=== PATIENT | female | born 1950 | race Caucasian/White ===

== ENCOUNTER 2019-11-30 17:06 | Outpatient (CLI) | payer OTHER | END 2019-11-30 17:07 | disposition home or self-care (01) | LOC: COV 17:06 | PROVIDERS: ATTEND Family Medicine | DX: R05 Cough (principal); M79.10 Myalgia, unspecified site; R53.83 Other fatigue; J02.9 Acute pharyngitis, unspecified; R19.7 Diarrhea, unspecified | CPT/HCPCS: 81599 ==

== ENCOUNTER 2020-08-13 12:04 | Outpatient (CLI) | payer OTHER, MEDICARE | END 2020-08-13 12:05 | disposition home or self-care (01) | LOC: COV 12:04 | PROVIDERS: ATTEND Family Medicine | DX: R53.83 Other fatigue (principal); Z20.828 Contact with and (suspected) exposure to other viral communicable diseases; M79.10 Myalgia, unspecified site; R68.83 Chills (without fever); J02.9 Acute pharyngitis, unspecified; R19.7 Diarrhea, unspecified; R09.81 Nasal congestion ==

== ENCOUNTER 2021-03-23 13:03 | Outpatient (CLI) | payer OTHER, MEDICARE ==
--- NOTE | 2021-03-23 13:28 | XRAY Report ---
PROCEDURE: Finger(s) LT INDICATIONS: CRUSHING INJURY TO LEFT RING FINGER TECHNIQUE: AP hand, 2 views of the fourth finger(s) acquired. COMPARISON: None FINDINGS: Bones: No fractures or dislocations. No suspicious bony lesions. Focal degenerative change is seen involving the first carpometacarpal joint, with milder degenerative changes seen elsewhere. Soft tissues: No suspicious soft tissue calcifications. IMPRESSION: No displaced fracture can be seen by plain film. Reviewed by: Bashir Chavez MD on 03/23/2021 12:26 PM JUN Approved by: Bashir Chavez MD on 03/23/2021 12:26 PM JUN Station ID: [id number]
== END 2021-03-23 23:59 | disposition home or self-care (01) ==
LOC: DI.S 13:03
PROVIDERS: ATTEND Physician Assistant Medical
DX: S67.195A Crushing injury of left ring finger, initial encounter (principal)

== ENCOUNTER 2021-07-18 07:07 | Outpatient (CLI) | payer MEDICARE, OTHER ==
[2021-07-18 15:20] LABS: BASOPHILS # (AUTO) 0.1 10^3/uL (0.0-0.1); BASOPHILS % (AUTO) 0.9 %; EOSINOPHILS # (AUTO) 0.1 10^3/uL (0.0-0.7); EOSINOPHILS % (AUTO) 2.1 %; HCT - HEMATOCRIT 40.5 % (37.0-47.0); HGB - HEMOGLOBIN 13.2 g/dL (12.0-16.0); LYMPHOCYTES # (AUTO) 0.6 10^3/uL (1.5-3.5); LYMPHOCYTES % (AUTO) 10.7 %; MEAN CORPUSCULAR HGB CONC 32.6 g/dL (32.0-36.0); MEAN CORPUSCULAR VOLUME 98.3 fL (81.0-99.0); MONOCYTES # (AUTO) 0.5 10^3/uL (0.0-1.0); MONOCYTES % (AUTO) 9.3 %; NEUTROPHILS # (AUTO) 4.4 10^3/uL (1.5-6.6); NEUTROPHILS % (AUTO) 76.8 %; PLT - PLATELET COUNT 322 10^3/uL (130-450); RED BLOOD COUNT 4.12 10^6/uL (4.20-5.40); RED CELL DISTRIBUTION WIDTH 13.5 % (12.0-15.0); WHITE BLOOD COUNT 5.7 x10^3/uL (4.8-10.8)
[2021-07-18 15:41] LABS: ALBUMIN 4.2 g/dL (3.2-5.5); ALKALINE PHOSPHATASE 57 IU/L (42-121); ALT ALANINE AMINOTRANSFERASE 17 IU/L (10-60); AST ASPARTATE AMINOTRANSFERASE 24 IU/L (10-42); BILIRUBIN,TOTAL 0.8 mg/dL (0.2-1.0); BUN - BLOOD UREA NITROGEN 16 mg/dL (6-20); CALCIUM 9.4 mg/dL (8.5-10.3); CARBON DIOXIDE - CO2 26 mmol/L (21-32); CHLORIDE 99 mmol/L (101-111); CREATININE 0.8 mg/dL (0.4-1.0); CRP HIGH SENSITIVITY 8.4 mg/L; GAMMA GLUTAMYL TRANSPEPTIDASE 11 IU/L (8-38); GFR - MDRD 71 (>89); GLUCOSE 99 mg/dL (70-100); POTASSIUM 4.2 mmol/L (3.5-5.0); SODIUM 132 mmol/L (135-145); TOTAL PROTEIN 6.9 g/dL (6.7-8.2)
[2021-07-18 15:42] LABS: ALBUMIN/GLOBULIN RATIO 1.6 (1.0-2.2); CHOL/HDL RATIO 2.7 (<4.4); CHOLESTEROL 213 mg/dL; HDL CHOLESTEROL 80 mg/dL; LDL CHOLESTEROL,CALCULATED 111 mg/dL; LDL/HDL RATIO 1.4 (<4.4); TRIGLYCERIDES 111 mg/dL; VLDL CHOLESTEROL 22 mg/dL
[2021-07-18 15:51] LABS: T4 (THYROXINE) 8.74 ug/dL (6.09-12.23)
[2021-07-18 15:54] LABS: THYROID STIMULATING HORMONE 1.92 uIU/mL (0.34-5.60)
[2021-07-18 17:28] LABS: FERRITIN 21.8 ng/mL (11.0-306.8)
[2021-07-19 12:51] LABS: HOMOCYSTEINE 9.4 umol/L (<10.4)
[2021-07-21 16:31] LABS: THYROID PEROXIDASE ANTIBODIES 20 IU/mL (<9)
[2021-07-21 23:01] LABS: 17-HYDROXYPREGNENOLONE <6 ng/dL
[2021-07-23 19:01] LABS: GLUCOSE-6-PHOSPHATE DEHYDROG 14.6 U/g Hgb (7.0-20.5)
[2021-07-25 05:36] LABS: HDL LARGE 9128 nmol/L (>6729); LDL MEDIUM 307 nmol/L (<215); LDL PARTICLE NUMBER 1630 nmol/L (<1138); LDL PATTERN A Pattern (A); LDL PEAK SIZE 224.8 Angstrom (>222.9); LDL SMALL 240 nmol/L (<142)
== END 2021-07-18 07:08 | disposition home or self-care (01) ==
LOC: LAB.S 07:07
PROVIDERS: ATTEND Registered Nurse
DX: I89.0 Lymphedema, not elsewhere classified (principal); Z13.228 Encounter for screening for other metabolic disorders; Z13.220 Encounter for screening for lipoid disorders; Z13.29 Encounter for screening for other suspected endocrine disorder; Z13.0 Encounter for screening for diseases of the blood and blood-forming organs and certain disorders involving the immune mechanism
CPT/HCPCS: 36415; 80053; 80061; 81599; 82105; 82306; 82607; 82728; 82955; 82977; 83090; 83519; 83525; 83704; 83721; 84143; 84270; 84402; 84403; 84436; 84443; 84480; 85025; 86141; 86376; 86800

== ENCOUNTER 2021-09-03 12:02 | Day surgery (SDC) | payer MEDICARE, OTHER ==
[2021-09-03] MEDS ORDERED: LACTATED RINGERS 1,000 ML IV ONE ×2 (12:09→15:55)
--- NOTE | 2021-09-03 14:15 | ANESTHESIA ---
Pre-Anesthesia VS, & Labs - Diagnosis polyps - Procedure colonoscopy Vital Signs: Temp Pulse Resp BP Pulse Ox 36.7 C 58 L 16 120/78 100 09/03/21 12:26 09/03/21 12:26 09/03/21 12:26 09/03/21 12:26 09/03/21 12:26 Height: 5 ft 8 in Weight (kg): 59.7 kg Body Mass Index: 20.0 BMI Classification: Healthy weight - NPO >8 hours - Is Patient ?: No Home Medications and Allergies Home Medications: Ambulatory Orders Ascorbic Acid [Vitamin C] 1 tab ORAL DAILY 09/02/21 Calcium Carbonate [Calcium] 600 mg PO DAILY 09/02/21 Magnesium 1 tab ORAL DAILY 09/02/21 Vitamin A 1 tab ORAL DAILY 09/02/21 Vitamin B Complex 1 tab ORAL DAILY 09/02/21 Ascorbic Acid [Vitamin C] 1 tab ORAL DAILY 09/02/21 Calcium Carbonate [Calcium] 600 mg PO DAILY 09/02/21 Magnesium 1 tab ORAL DAILY 09/02/21 Vitamin A 1 tab ORAL DAILY 09/02/21 Vitamin B Complex 1 tab ORAL DAILY 09/02/21 Allergies/Adverse Reactions: Allergies Allergy/AdvReac Type Severity Reaction Status Date / Time No Known Drug Allergies Allergy Verified 09/02/21 12:41 Anes History & Medical History - Anesthetic History Anesthesia Complications: reports: No previous complications - Medical History Cardiovascular: reports: Other Pulmonary: reports: None Gastrointestinal: reports: None Urinary: reports: None Musculoskeletal: reports: None Endocrine/Autoimmune: reports: None Skin: reports: None History of Cancer?: No - Surgical History Gynecologic: reports: Breast implants Exam General: Alert, Oriented x3, Cooperative Dental: WNL Mouth Opening: Greater than 4 Fingerbreadths Neck Mobility: Normal Mallampati classification: I Thyromental Distance: greater than 6 cm Respiratory: Lungs clear Cardiovascular: Regular rate Plan Anesthesia Type: Total IV Consent for Procedure(s) Verified and Reviewed: Yes Code Status: Attempt Resuscitation ASA classification: 2-Mild systemic disease Is this case an emergency?: No
[2021-09-03] MEDS ORDERED: LIDOCAINE-MPF 2% 5 ML VIAL ONE (14:42)
[2021-09-03] MEDS ORDERED: PROPOFOL 500 MG/50 ML 500 MG/50 ML VIAL ONE (14:42)
[2021-09-03] MEDS ORDERED: PROPOFOL 200 MG/20 ML VIAL IVP ONE (15:21)
--- NOTE | 2021-09-03 15:52 | ANESTHESIA POST OP EVALUATION ---
Anesthesia Post Eval - Post Anesthesia Eval Vitals: Last Vital Signs Temp 36.4 C L 09/03/21 15:44 Pulse 69 09/03/21 15:44 Resp 12 09/03/21 15:44 BP 92/71 09/03/21 15:44 Pulse Ox 99 09/03/21 15:44 CV Function Including HR & BP: Stable Pain Control: Satisfactory Nausea & Vomiting: Negative Mental Status: Baseline Respiratory Status: Airway Patent Hydration Status: Satisfactory Anesthesia Complications: None
[2021-09-03 15:55] VITALS: BP 104/78
== END 2021-09-03 12:03 | disposition home or self-care (01) ==
LOC: SDS 12:02
PROVIDERS: ATTEND Surgery
PROC: 0DBL8ZZ Excision of Transverse Colon, Via Natural or Artificial Opening Endoscopic (ICD-10-PCS; 2021-09-03)
PROC: 0DBN8ZX Excision of Sigmoid Colon, Via Natural or Artificial Opening Endoscopic, Diagnostic (ICD-10-PCS; 2021-09-03)
PROC: 0DBK8ZZ Excision of Ascending Colon, Via Natural or Artificial Opening Endoscopic (ICD-10-PCS; principal; 2021-09-03 13:15)
DX: Z12.11 Encounter for screening for malignant neoplasm of colon (principal); D12.3 Benign neoplasm of transverse colon; D12.2 Benign neoplasm of ascending colon; K63.5 Polyp of colon; K57.30 Diverticulosis of large intestine without perforation or abscess without bleeding
CPT/HCPCS: 45380; J7120

== ENCOUNTER 2022-05-18 11:06 | Outpatient (CLI) | payer MEDICARE, OTHER ==
[2022-05-18 14:36] LABS: ABSOLUTE RETICS # AUTO 0.063 10^6/uL (0.020-0.110); BASOPHILS # (AUTO) 0.1 10^3/uL (0.0-0.1); BASOPHILS % (AUTO) 1.2 %; EOSINOPHILS # (AUTO) 0.1 10^3/uL (0.0-0.7); EOSINOPHILS % (AUTO) 1.3 %; LYMPHOCYTES # (AUTO) 1.1 10^3/uL (1.5-3.5); LYMPHOCYTES % (AUTO) 18.9 %; MEAN CORPUSCULAR HGB CONC 34.2 g/dL (32.0-36.0); MEAN CORPUSCULAR VOLUME 96.4 fL (81.0-99.0); MEAN PLATELET VOLUME 9.7 fL (7.9-10.8); MONOCYTES # (AUTO) 0.4 10^3/uL (0.0-1.0); MONOCYTES % (AUTO) 5.9 %; NEUTROPHILS # (AUTO) 4.3 10^3/uL (1.5-6.6); NEUTROPHILS % (AUTO) 72.5 %; PLT - PLATELET COUNT 295 10^3/uL (130-450); RED BLOOD COUNT 3.94 10^6/uL (4.20-5.40); RED CELL DISTRIBUTION WIDTH 13.8 % (12.0-15.0); RETICULOCYTE COUNT % (AUTO) 1.61 % (0.5-2.3); WHITE BLOOD COUNT 5.9 x10^3/uL (4.8-10.8)
[2022-05-18 15:08] LABS: % IRON SATURATION 22 % (20-50); CHOL/HDL RATIO 2.3 (<4.4); CHOLESTEROL 201 mg/dL; HDL CHOLESTEROL 89 mg/dL; IRON 77 ug/dL (28-170); TOTAL IRON BINDING CAPACITY 343 ug/dL (250-450); TRANSFERRIN 245 mg/dL (192-382); TRIGLYCERIDES 31 mg/dL
[2022-05-18 15:09] LABS: CRP HIGH SENSITIVITY < 0.5 mg/L
[2022-05-18 15:15] LABS: FOLATE 10.53 ng/mL (5.90 - >24.8)
[2022-05-18 20:49] LABS: ESTIMATED AVERAGE GLUCOSE 114 mg/dL (70-100); HEMOGLOBIN A1c% 5.6 % (4.27-6.07)
[2022-05-19 05:11] LABS: AFP SERUM TUMOR MARKER 3.5 ng/mL (0.0-9.2)
[2022-05-19 06:09] LABS: HCV AB <0.1 s/co ratio (0.0-0.9)
[2022-05-19 08:09] LABS: IMMUNOGLOBULIN A 199 mg/dL (87-352); IMMUNOGLOBULIN G 821 mg/dL (586-1602); IMMUNOGLOBULIN M 71 mg/dL (26-217)
[2022-05-19 14:08] LABS: THYROGLOBULIN ANTIBODY <1.0 IU/mL (0.0-0.9); THYROID PEROXIDASE (TPO) AB 21 IU/mL (0-34)
== END 2022-05-18 11:07 | disposition home or self-care (01) ==
LOC: LAB.S 11:06
PROVIDERS: ATTEND Registered Nurse
DX: Z00.00 Encounter for general adult medical examination without abnormal findings (principal); Z13.228 Encounter for screening for other metabolic disorders; Z13.0 Encounter for screening for diseases of the blood and blood-forming organs and certain disorders involving the immune mechanism; Z13.29 Encounter for screening for other suspected endocrine disorder; Z13.220 Encounter for screening for lipoid disorders
CPT/HCPCS: 36415; 80061; 81599; 82105; 82607; 82728; 82746; 82784; 83036; 83540; 83721; 84270; 84466; 85025; 85045; 86141; 86376; 86800; 86803

== ENCOUNTER 2022-06-10 12:30 | Outpatient (CLI) | payer MEDICARE, OTHER | END 2022-06-10 12:31 | disposition home or self-care (01) | LOC: LAB.S 12:30 | PROVIDERS: ATTEND Registered Nurse | DX: E67.8 Other specified hyperalimentation (principal); Z13.228 Encounter for screening for other metabolic disorders | CPT/HCPCS: 36415; 82607 ==

== ENCOUNTER 2022-06-15 07:46 | Outpatient (CLI) | payer MEDICARE, OTHER | END 2022-06-15 07:47 | disposition home or self-care (01) | LOC: LAB.S 07:46 | PROVIDERS: ATTEND Registered Nurse | DX: E67.8 Other specified hyperalimentation (principal) | CPT/HCPCS: 36415; 82607 ==

== ENCOUNTER 2022-10-30 07:08 | Outpatient (CLI) | payer MEDICARE, OTHER | END 2022-10-30 07:09 | disposition home or self-care (01) | LOC: LAB.S 07:08 | PROVIDERS: ATTEND Registered Nurse | DX: E67.8 Other specified hyperalimentation (principal) | CPT/HCPCS: 36415; 82607 ==

== ENCOUNTER 2022-11-04 10:13 | Outpatient (CLI) | payer MEDICARE, OTHER ==
--- NOTE | 2022-11-11 10:04 | Mammography Report ---
BILATERAL DIGITAL SCREENING MAMMOGRAM 3D/2D: 11/04/2022 CLINICAL: Routine screening. Comparison is made to exams dated: 09/11/2021 mammogram, 07/09/2020 mammogram, and 06/06/2019 mammogr - [facility]. There are scattered areas of fibroglandular density in both breasts (category b / 25%-50% glandular t issue). There is a biopsy clip in the right breast. No significant masses, calcifications, or other findings are seen in either breast. There has been no significant interval change. IMPRESSION: NEGATIVE There is no mammographic evidence of malignancy. A 1 year screening mammogram is recommended. Based on the Tyrer Cuzick model (a risk assessment model) the patients lifetime risk is 4.0% and her 10 year risk is 2.6%. According to the ACR, ACS, and NCCN guidelines, an annual breast MRI exam becka g with mammogram is recommended if the patients lifetime risk is 20% or greater. This exam was interpreted at Station ID: [id number]. NOTE: For mammograms, a report in lay terms will be sent to the patient. Approximately 15% of breast malignancies will not be visualized mammographically. In the management of a palpable breast mass, a negative mammogram must not discourage biopsy of a clinically suspicious lesion. Electronically Signed By: Jose braun/[email or web address]:11/10/2022 16:52:36 letter sent: No_Letter ACR BI-RADS Category 1: Negative 3341F PARENCHYMAL PATTERN: (A) - The breast(s) demonstrate(s) scattered fibroglandular densities. BI-RADS CATEGORY: (1) - 1 Mammogram [id number] 1 year screening LATERALITY: (B)
== END 2022-11-04 10:14 | disposition home or self-care (01) ==
LOC: DI.S 10:13
PROVIDERS: ATTEND Registered Nurse
DX: Z12.31 Encounter for screening mammogram for malignant neoplasm of breast (principal)

== ENCOUNTER 2022-11-07 10:50 | Outpatient (CLI) | payer MEDICARE, OTHER ==
--- NOTE | 2022-11-07 11:51 | CT Report ---
PROCEDURE: CHEST WO INDICATIONS: URI, HIST OF SMOKING TECHNIQUE: Noncontrast 1mm axial images were acquired from the pulmonary apices to the posterior costophrenic an gles. Axial 5 mm soft tissue kernel reconstructions were performed as well as 8 mm axial MIP and cor onal and sagittal 5 mm reformations. For radiation dose reduction, the following was used: automate d exposure control, adjustment of mA and/or kV according to patient size. COMPARISON: None. FINDINGS: Image quality: Excellent. Lungs and pleura: Mild dependent atelectasis can be seen, right worse than left. No pleural effusion s or pneumothorax. Central and peripheral airways are patent and normal in caliber. Mediastinum: Heart size is normal. No pericardial effusion. No mediastinal adenopathy by size crit eria. Thoracic aorta and central pulmonary arteries are normal in size. Esophagus is normal in barbara courtney. No hiatal hernia. Bones and chest wall: No suspicious bony lesions. No vertebral body compression fractures. No axil simón or supraclavicular adenopathy by size criteria. The thyroid is normal in size and there are no incidental findings. Abdomen: Visualized upper abdominal solid organs and bowel loops appear normal in the absence of con trast. IMPRESSION: No pulmonary nodules are seen. Mild dependent atelectasis can be seen. Recommend annual low-dose CT chest screening examinations, as long as the patient meets the published screening criteria. Reviewed by: Bashir Chavez MD on 11/07/2022 10:50 AM JUN Approved by: Bashir Chavez MD on 11/07/2022 10:50 AM JUN Station ID: [id number]
== END 2022-11-07 10:51 | disposition home or self-care (01) ==
LOC: DI 10:50
PROVIDERS: ATTEND Registered Nurse
DX: J98.11 Atelectasis (principal); J06.9 Acute upper respiratory infection, unspecified; Z87.891 Personal history of nicotine dependence

== ENCOUNTER 2023-04-27 07:03 | Outpatient (CLI) | payer MEDICARE, OTHER ==
[2023-04-27 14:39] LABS: BASOPHILS # (AUTO) 0.1 10^3/uL (0.0-0.1); BASOPHILS % (AUTO) 1.5 %; EOSINOPHILS # (AUTO) 0.2 10^3/uL (0.0-0.7); EOSINOPHILS % (AUTO) 3.6 %; HCT - HEMATOCRIT 43.6 % (37.0-47.0); LYMPHOCYTES # (AUTO) 0.9 10^3/uL (1.5-3.5); LYMPHOCYTES % (AUTO) 19.3 %; MEAN CORPUSCULAR HGB CONC 32.1 g/dL (32.0-36.0); MEAN CORPUSCULAR VOLUME 99.5 fL (81.0-99.0); MEAN PLATELET VOLUME 10.5 fL (7.9-10.8); MONOCYTES # (AUTO) 0.5 10^3/uL (0.0-1.0); NEUTROPHILS # (AUTO) 3.1 10^3/uL (1.5-6.6); NEUTROPHILS % (AUTO) 65.4 %; PLT - PLATELET COUNT 327 10^3/uL (130-450); RED BLOOD COUNT 4.38 10^6/uL (4.20-5.40); RED CELL DISTRIBUTION WIDTH 13.7 % (12.0-15.0); WHITE BLOOD COUNT 4.7 x10^3/uL (4.8-10.8)
[2023-04-27 15:19] LABS: ALBUMIN 4.3 g/dL (3.2-5.5); ALBUMIN/GLOBULIN RATIO 1.9 (1.0-2.2); BILIRUBIN,TOTAL 0.4 mg/dL (0.2-1.0); CREATININE 0.9 mg/dL (0.6-1.3); POTASSIUM 4.6 mmol/L (3.5-4.5); TOTAL PROTEIN 6.6 g/dL (6.4-8.9)
[2023-04-27 15:26] LABS: THYROID STIMULATING HORMONE 1.62 uIU/mL (0.34-5.60)
== END 2023-04-27 07:04 | disposition home or self-care (01) ==
LOC: LAB.S 07:03
PROVIDERS: ATTEND Registered Nurse
DX: Z79.899 Other long term (current) drug therapy (principal); Z13.228 Encounter for screening for other metabolic disorders
CPT/HCPCS: 36415; 80053; 84443; 85025

== ENCOUNTER 2023-05-02 10:58 | Emergency (ER) | payer MEDICARE, OTHER ==
[2023-05-02 11:10] VITALS: O2SAT 100
--- NOTE | 2023-05-02 11:26 | XRAY Report ---
PROCEDURE: Chest 1 View X-Ray INDICATIONS: Chest pain TECHNIQUE: One view of the chest was acquired. COMPARISON: None. FINDINGS: Surgical changes and devices: None. Lungs and pleura: No pleural effusions or pneumothorax. Lungs are clear. Mediastinum: Mediastinal contours appear normal. Heart size is normal. Bones and chest wall: No suspicious bony lesions. Overlying soft tissues appear unremarkable. IMPRESSION: No acute process. Reviewed by: Latesha Mejia MD on 05/02/2023 11:25 AM PDT Approved by: Latesha Mejia MD on 05/02/2023 11:25 AM PDT Station ID: [id number]
[2023-05-02 11:30] LABS: BASOPHILS # (AUTO) 0.1 10^3/uL (0.0-0.1); BASOPHILS % (AUTO) 1.2 %; EOSINOPHILS # (AUTO) 0.1 10^3/uL (0.0-0.7); EOSINOPHILS % (AUTO) 1.7 %; HCT - HEMATOCRIT 41.8 % (37.0-47.0); HGB - HEMOGLOBIN 13.5 g/dL (12.0-16.0); LYMPHOCYTES % (AUTO) 15.5 %; MEAN CORPUSCULAR HEMOGLOBIN 31.5 pg (27.0-31.0); MEAN CORPUSCULAR HGB CONC 32.3 g/dL (32.0-36.0); MEAN CORPUSCULAR VOLUME 97.7 fL (81.0-99.0); MEAN PLATELET VOLUME 9.7 fL (7.9-10.8); MONOCYTES # (AUTO) 0.5 10^3/uL (0.0-1.0); MONOCYTES % (AUTO) 7.7 %; NEUTROPHILS # (AUTO) 4.9 10^3/uL (1.5-6.6); NEUTROPHILS % (AUTO) 73.7 %; PLT - PLATELET COUNT 277 10^3/uL (130-450); RED BLOOD COUNT 4.28 10^6/uL (4.20-5.40); RED CELL DISTRIBUTION WIDTH 13.6 % (12.0-15.0); WHITE BLOOD COUNT 6.6 x10^3/uL (4.8-10.8)
--- NOTE | 2023-05-02 11:42 | ED Physician Documentation ---
History of Present Illness - Stated complaint Stated Complaint: CHEST PX - Chief complaint Chief Complaint: Cardiac - History obtained from History obtained from: Patient - History of Present Illness Pain level max: 0 Pain level now: 0 - Additonal information Additional information: Patient is a 73-year-old female who presents to the emergency department stating that she awoke from sleep at about 2 AM with sharp left-sided chest pain. Worse with deep breathing. Nothing seems to make it better. Has been constant since that time. No shortness of breath. She states she has felt "a little under the weather" for the past 10 days since returning from [place]. No fevers. No chills. No significant cough. She states she took a COVID test at home which was negative. She states that 2 days ago her left arm was hurting but this resolved yesterday. Does not recall any significant injuries. Patient denies any cardiac history. No history of blood clots. Review of Systems Constitutional: denies: Fever, Chills Nose: denies: Rhinorrhea / runny nose, Congestion Throat: denies: Sore throat Cardiac: denies: Palpitations Respiratory: denies: Dyspnea, Cough, Hemoptysis, Wheezing GI: denies: Nausea, Vomiting, Diarrhea, Hematemesis, Bloody / black stool : denies: Dysuria Skin: denies: Rash Musculoskeletal: denies: Neck pain, Back pain, Extremity pain, Extremity swelling PD PAST MEDICAL HISTORY - Past Medical History Past Medical History: Yes Cardiovascular: Atrial fibrillation, Other Respiratory: None Endocrine/Autoimmune: None GI: None : None HEENT: None Psych: None Musculoskeletal: None Derm: None - Past Surgical History Past Surgical History: Yes /[employer]: Breast implants - Present Medications Home Medications: Ambulatory Orders Medication Instructions Recorded Confirmed Ascorbic Acid [Vitamin C] 1 tab ORAL DAILY 09/02/21 05/02/23 Calcium Carbonate [Calcium] 600 mg PO DAILY 09/02/21 05/02/23 Magnesium 1 tab ORAL DAILY 09/02/21 05/02/23 Vitamin A 1 tab ORAL DAILY 09/02/21 05/02/23 Vitamin B Complex 1 tab ORAL DAILY 09/02/21 05/02/23 - Allergies Allergies/Adverse Reactions: Allergies Allergy/AdvReac Type Severity Reaction Status Date / Time No Known Drug Allergies Allergy Verified 09/02/21 12:41 - Social History Does the pt smoke?: No Smoking Status: Never smoker PD ED PE NORMAL - Vitals Vital signs reviewed: Yes - General General: Alert and oriented X 3, No acute distress - HEENT HEENT: PERRL, Moist mucous membranes - Neck Neck: Supple, no meningeal sign - Cardiac Cardiac: RRR, No murmur, Strong equal pulses - Respiratory Respiratory: No respiratory distress, Clear bilaterally, Other (No significant tenderness across the anterior chest wall.) - Abdomen Abdomen: Soft, Non tender, Non distended - Back Back: No CVA TTP, No spinal TTP - Derm Derm: Warm and dry, No rash - Extremities Extremities: No edema, No calf tenderness / cord - Neuro Neuro: Alert and oriented X 3 - Psych Psych: Normal mood, Normal affect Results - Vitals Vitals: Vital Signs - 24 hr 05/02/23 05/02/23 05/02/23 11:05 12:00 13:00 Temperature 36.3 C L Heart Rate 67 63 55 L Respiratory 18 16 15 Rate Blood Pressure 142/81 H 138/81 H 115/75 O2 Saturation 100 100 100 05/02/23 14:12 Temperature Heart Rate 54 L Respiratory 16 Rate Blood Pressure 115/74 O2 Saturation 100 Oxygen O2 Source Room air - EKG (time done) 1104 EKG releavant findings:: EKG personally interpreted by author of this note. Relevant findings are: Rate: Rate (enter#) (66) Rhythm: NSR [place]: Normal Intervals: Normal MA QRS: Normal Ischemia: Normal ST segments - Labs Labs: Laboratory Tests 05/02/23 05/02/23 11:21 11:21 WBC 6.6 RBC 4.28 Hgb 13.5 Hct 41.8 MCV 97.7 MCH 31.5 H MCHC 32.3 RDW 13.6 Plt Count 277 MPV 9.7 Neut # (Auto) 4.9 Lymph # (Auto) 1.0 L [place] # (Auto) 0.5 Eos # (Auto) 0.1 Baso # (Auto) 0.1 Absolute Nucleated RBC 0.00 Nucleated RBC % 0.0 Sodium 138 Potassium 4.3 Chloride 103 Carbon Dioxide 31 Anion Gap 4.0 L BUN 9 Creatinine 0.8 Estimated GFR (MDRD) 71 L Glucose 88 Calcium 9.9 Total Bilirubin 0.6 AST 20 ALT 14 Alkaline Phosphatase 59 Troponin I High Sens < 2.3 L Total Protein 6.6 Albumin 4.2 Globulin 2.4 Albumin/Globulin Ratio 1.8 Lipase 18 - Rads (name of study) cxr Relevant Findings:: Final report received, See rad report ct pa Relevant Findings:: Final report received, See rad report PD Medical Decision Making - ED course Complexity details: reviewed results, re-evaluated patient, considered differential (No ST elevation PA, no aortic dissection, no PE, no tension pneumothorax, no aortic aneurysm), d/w patient, d/w family ED course: No acute findings on EKG, laboratory testing, chest x-ray. History with a recent long plane ride concerning for potential PE, therefore CT pulmonary angiogram was ordered, this does not show any evidence of PE. Patient is not currently having symptoms in the emergency department. There is no change with exertion. There is no evidence of acute coronary syndrome but will have her follow-up with her doctor for cardiac stress test. Patient is well-appearing, nontoxic. No hypoxia or respiratory distress. Patient counseled regarding signs and symptoms for which I believe and urgent re-evaluation would be necessary. Patient with good understanding of and agreement to plan and is comfortable going home at this time This document was made in part using voice recognition software. While efforts are made to proofread this document, sound alike and grammatical errors may occur. Departure - Departure Disposition: 01 Home, Self Care Clinical Impression: Chest pain Qualifiers: Chest pain type: unspecified Qualified Code(s): R07.9 - Chest pain, unspecified Condition: Good Instructions: ED Chest Pain Atypical Unkn Cause Follow-Up: Zoey Moss ARNP [Primary Care Provider] - Within 1 week Comments: Your laboratory testing, EKG and CT scan do not show any acute abnormalities. There is no evidence of heart attack today. No evidence of blood clot in the lung. It is recommended that you follow-up with your doctor for a cardiac stress test. You can use Motrin or Tylenol as needed for pain. Please return if you worsen. Forms: PCP List Discharge Date/Time: 05/02/23 14:13
[2023-05-02 11:46] LABS: ALBUMIN 4.2 g/dL (3.2-5.5); ALBUMIN/GLOBULIN RATIO 1.8 (1.0-2.2); ALKALINE PHOSPHATASE 59 IU/L (42-121); ALT ALANINE AMINOTRANSFERASE 14 IU/L (10-60); AST ASPARTATE AMINOTRANSFERASE 20 IU/L (10-42); BILIRUBIN,TOTAL 0.6 mg/dL (0.2-1.0); BUN - BLOOD UREA NITROGEN 9 mg/dL (6-20); CALCIUM 9.9 mg/dL (8.5-10.3); CARBON DIOXIDE - CO2 31 mmol/L (21-32); CHLORIDE 103 mmol/L (101-111); CREATININE 0.8 mg/dL (0.6-1.3); GFR - MDRD 71 (>89); GLUCOSE 88 mg/dL (74-104); LIPASE 18 U/L (11-82); POTASSIUM 4.3 mmol/L (3.5-4.5); SODIUM 138 mmol/L (135-145); TOTAL PROTEIN 6.6 g/dL (6.4-8.9)
[2023-05-02 11:51] LABS: TROPONIN I HIGH SENSITIVITY < 2.3 ng/L (2.3-14.8)
--- NOTE | 2023-05-02 13:32 | CT Report ---
PROCEDURE: ANGIO CHEST W/WO INDICATIONS: L chest pain CONTRAST: 80mL Opti 320 TECHNIQUE: After the administration of intravenous contrast, 2 mm axial images were acquired from the pulmonary apices to the posterior costophrenic angles during the arterial phase. In addition, 1 mm lung kernel and 5 mm soft tissue kernel reconstructions were performed. 3-dimensional coronal oblique maximum int ensity projection (MIP) reformats, 8 mm axial MIP, and 5 mm coronal and sagittal MPR reformats were t hen performed through the thorax. For radiation dose reduction, the following was used: automated exp osure control, adjustment of mA and/or kV according to patient size. COMPARISON: CT dated 01/07/2023 FINDINGS: Image quality: Excellent. Large vessels: No filling defects within the opacified pulmonary arteries, accounting for motion and contrast timing. No evidence of acute aortic syndrome or aortic aneurysm. Lungs and pleura: No consolidation. No pleural effusions. No pneumothorax. No suspicious pulmonary n odules which require follow up. Mediastinum: Heart size is normal. No pericardial effusion. No large vessel abnormality. No mediastin al adenopathy by size criteria. Chest wall and lower neck: Thyroid is unremarkable. No axillary or supraclavicular adenopathy by size . Bones: No aggressive osseous abnormality. Upper Abdomen: Unremarkable. IMPRESSION: 1. No acute process. 2. No pulmonary embolus. Reviewed by: Latesha Mejia MD on 05/02/2023 1:30 PM PDT Approved by: Latesha Mejia MD on 05/02/2023 1:30 PM PDT Station ID: [id number]
[2023-05-02 14:15] VITALS: BP 115/74
[2023-05-02] MEDS ORDERED: IOVERSOL 320 100 ML VIAL IVP ONE (15:06)
== END 2023-05-02 14:13 | disposition home or self-care (01) ==
LOC: ED 10:58
DX: R07.9 Chest pain, unspecified (principal); I48.91 Unspecified atrial fibrillation; Z79.899 Other long term (current) drug therapy
CPT/HCPCS: 36415; 71045; 71275; 80053; 83690; 84484; 85025; 93005; 99283; 99284; Q9967

== ENCOUNTER 2023-10-29 10:39 | Outpatient (CLI) | payer MEDICARE, OTHER ==
--- NOTE | 2023-10-29 20:12 | CT Report ---
PROCEDURE: Lung Cancer Screen INDICATIONS: HIST OF SMOKING TECHNIQUE: A CT scan of the chest was performed. Intravenous contrast media was not administered. Images were re corded and evaluated at appropriate window settings. Reformats: axial MIP of the chest, coronal and s agittal. For radiation dose reduction, the following was used: automated exposure control, adjustment of mA and/or kV according to patient size. COMPARISON: CTA of the chest dated 05/02/2023 FINDINGS: Image quality: Diagnostic. Prior cancer history: Unsure. Lungs and pleura: No pleural effusions. No pneumothorax. No suspicious pulmonary nodules which requi re follow up. Mild bibasilar atelectasis. Mediastinum: Heart size is normal. No pericardial effusion. No large vessel abnormality. No mediastin al adenopathy by size criteria. Chest wall and lower neck: Thyroid is unremarkable. No axillary or supraclavicular adenopathy by size . Bones: No aggressive osseous abnormality. Upper Abdomen: Unremarkable. IMPRESSION: No suspicious pulmonary nodules. No acute cardiopulmonary abnormalities. Lung RAD: 1 - Negative. Recommendation: Continue annual screening in 12 Months with LDCT Non-Lung Significant Findings: None. Reviewed by: Elmer Olvera MD on 10/29/2023 7:10 PM AKINGA Approved by: Elmer Olvera MD on 10/29/2023 7:10 PM AKDT Station ID: [id number]
== END 2023-10-29 10:40 | disposition home or self-care (01) ==
LOC: DI 10:39
PROVIDERS: ATTEND Registered Nurse
DX: Z12.2 Encounter for screening for malignant neoplasm of respiratory organs (principal); Z87.891 Personal history of nicotine dependence

== ENCOUNTER 2023-11-02 07:02 | Outpatient (CLI) | payer MEDICARE, OTHER ==
[2023-11-02 14:58] LABS: BASOPHILS # (AUTO) 0.1 10^3/uL (0.0-0.1); BASOPHILS % (AUTO) 1.5 %; EOSINOPHILS # (AUTO) 0.1 10^3/uL (0.0-0.7); HCT - HEMATOCRIT 43.2 % (37.0-47.0); HGB - HEMOGLOBIN 13.5 g/dL (12.0-16.0); LYMPHOCYTES # (AUTO) 0.8 10^3/uL (1.5-3.5); LYMPHOCYTES % (AUTO) 17.8 %; MEAN CORPUSCULAR HEMOGLOBIN 31.1 pg (27.0-31.0); MEAN CORPUSCULAR HGB CONC 31.3 g/dL (32.0-36.0); MEAN CORPUSCULAR VOLUME 99.5 fL (81.0-99.0); MEAN PLATELET VOLUME 10.5 fL (7.9-10.8); MONOCYTES # (AUTO) 0.4 10^3/uL (0.0-1.0); MONOCYTES % (AUTO) 8.1 %; NEUTROPHILS # (AUTO) 3.3 10^3/uL (1.5-6.6); NEUTROPHILS % (AUTO) 69.2 %; PLT - PLATELET COUNT 303 10^3/uL (130-450); RED BLOOD COUNT 4.34 10^6/uL (4.20-5.40); RED CELL DISTRIBUTION WIDTH 14.2 % (12.0-15.0); WHITE BLOOD COUNT 4.7 x10^3/uL (4.8-10.8)
[2023-11-02 16:02] LABS: ALBUMIN 4.2 g/dL (3.2-5.5); ALBUMIN/GLOBULIN RATIO 1.8 (1.0-2.2); ALKALINE PHOSPHATASE 51 IU/L (42-121); ALT ALANINE AMINOTRANSFERASE 18 IU/L (10-60); AST ASPARTATE AMINOTRANSFERASE 24 IU/L (10-42); BILIRUBIN,TOTAL 0.7 mg/dL (0.2-1.0); BUN - BLOOD UREA NITROGEN 14 mg/dL (6-20); CARBON DIOXIDE - CO2 31 mmol/L (21-32); CHLORIDE 103 mmol/L (101-111); CHOL/HDL RATIO 2.2 (<4.4); CHOLESTEROL 188 mg/dL; CREATININE 0.9 mg/dL (0.6-1.3); GFR - MDRD 62 (>89); GLUCOSE 110 mg/dL (74-104); HDL CHOLESTEROL 85 mg/dL; LDL CHOLESTEROL,CALCULATED 88 mg/dL; POTASSIUM 4.5 mmol/L (3.5-4.5); SODIUM 137 mmol/L (135-145); TOTAL PROTEIN 6.6 g/dL (6.4-8.9); TRIGLYCERIDES 73 mg/dL (48-352); VLDL CHOLESTEROL 15 mg/dL
[2023-11-02 16:17] LABS: THYROID STIMULATING HORMONE 1.61 uIU/mL (0.34-5.60)
== END 2023-11-02 07:03 | disposition home or self-care (01) ==
LOC: LAB.S 07:02
PROVIDERS: ATTEND Registered Nurse
DX: Z13.228 Encounter for screening for other metabolic disorders (principal); Z13.220 Encounter for screening for lipoid disorders; Z13.29 Encounter for screening for other suspected endocrine disorder; Z13.0 Encounter for screening for diseases of the blood and blood-forming organs and certain disorders involving the immune mechanism; Z79.899 Other long term (current) drug therapy
CPT/HCPCS: 36415; 80053; 80061; 83721; 84443; 85025